=== PATIENT | male | born 1945 | race Caucasian/White ===

== ENCOUNTER 2020-03-06 17:39 | Emergency (ER) | payer MEDICARE, BC ==
[~2020-03-06] VITALS: Ht 190.5 cm; Wt 105.0 kg
[~2020-03-06 17:39] MED LIST: BACL10TA PO; CHOL2000 PO; FISH1CAP15 PO; LEVO50TA78 PO; LISI-642 PO; OMEP40CA13 PO; PRAV40TA3 PO; SERT-153 PO; TESTOSTERONE
[2020-03-06 19:45] VITALS: BP 145/86
[2020-03-07] MEDS ORDERED: DOCU100C40 PO (23:52)
== END 2020-03-06 20:02 | disposition home or self-care (01) ==
LOC: ER 17:40
DX: K59.00 Constipation, unspecified (principal); R19.7 Diarrhea, unspecified; R10.84 Generalized abdominal pain; Z91.018 Allergy to other foods; Z91.09 Other allergy status, other than to drugs and biological substances; Z79.899 Other long term (current) drug therapy
CPT/HCPCS: 99281

== ENCOUNTER 2020-03-07 20:51 | Emergency (ER) | payer MEDICARE, BC ==
[~2020-03-07] VITALS: Ht 185.4 cm; Wt 106.8 kg
[2020-03-07] MEDS ORDERED: DOCU100C40 PO (23:52)
[2020-03-08] MEDS ORDERED: magnesium citrate 296ml oral solution PO ONE (01:00)
[2020-03-08 01:08] VITALS: BP 143/74
== END 2020-03-08 01:09 | disposition home or self-care (01) ==
LOC: ER 20:52
DX: K59.00 Constipation, unspecified (principal); G35 Multiple sclerosis; Z98.890 Other specified postprocedural states; Z91.018 Allergy to other foods; Z79.899 Other long term (current) drug therapy
CPT/HCPCS: 99284

== ENCOUNTER 2025-01-18 12:48 | Emergency (ER) | payer MEDICARE, BC ==
[~2025-01-18] VITALS: Ht 182.9 cm; Wt 98.6 kg
[~2025-01-18 12:48] MED LIST changes: +DOCU100C40 PO; -OMEP40CA13 PO; +OMEP40CA21 PO
--- NOTE | 2025-01-18 13:18 | RADIOLOGY REPORT ---
CLINICAL INDICATION: Finger Pain TECHNIQUE: 3 DI FINGER(S) Comparison: None FINDINGS/IMPRESSION: : Severe diffuse degenerative changes of the hand most prominent at the 1st [facility]. Subtle linear lucency at the distal phalanx of the 5th digit possibly representing a nondisplaced fra cture.
--- NOTE | 2025-01-18 15:22 | Physician Documentation ---
History of Present Illness ~ Chief Complaint: Finger pain Stated Complaint: SMASHED FINGER Time Seen by MD: 13:43 Primary Medical Doctor: ALEXIA; MANJU Source: patient, family HPI Patient is seen today with complaints of having recently smashed his left small finger distal phalanx with the removal of his nail accidentally with soft tissue injury distally to the tuft. Patient states this happened just prior to arrival. Patient is seen today with his . Patient has no other concern or complaint at this time. Tetanus within 5 years: Yes Medication Reconciliation Allergies: Coded Allergies: banana (Unverified Allergy, Intermediate, 03/07/20) diarrhea lactose (Unverified Allergy, Intermediate, 03/07/20) multiple trips to bathroom. Uncoded Allergies: lettuce (Allergy, Intermediate, 01/22/14) diarrhea Scheduled Cholecalciferol (Vitamin D3) (Vitamin D-3), 2,000 UNIT PO DAILY, (Reported) Docusate Sodium (Docusate Sodium), 2 CAP PO Q12H Fish Oil/Dha/Epa (Fish Oil 1,200 Mg Fish Oil), 1 EACH PO BID, (Reported) Levothyroxine Sodium* (Synthroid*), 1 TAB PO DAILY, (Reported) Lisinopril* (Zestril*), 2 TABLET PO DAILY, (Reported) Omeprazole (Prilosec), 1 CAP PO QAM, (Reported) Pravastatin Sodium (Pravastatin Sodium), 1 TAB PO HS, (Reported) Sertraline HCl (Sertraline HCl), 2 TAB PO DAILY, (Reported) [Testosterone], 100 MG DAILY, (Reported) Scheduled PRN Baclofen (Baclofen), 1 TAB PO DAILY PRN for muscle spasms, (Reported) Past Medical History Past Medical History: Multiple Sclerosis Past Surgical History: orthopedic surgeries Lives In: Home Review of Systems Constitutional: Denies: chills, fever, weakness Eyes: Denies: pain, blurred vision ENT: Denies: ear pain, nose pain, throat pain, mouth pain Respiratory: Denies: cough, shortness of breath Cardiovascular: Denies: chest pain, palpitations Gastrointestinal: Denies: abdominal pain, nausea, vomiting Genitourinary: Denies: burning, dysuria Male Genitalia: Denies: penile discharge, testicular pain Neurological: Denies: headache, dizziness Musculoskeletal: Denies: pain, swelling Integumentary: Denies: rash, lesions Allergic/Immunologic: Denies: hives, itching Hematologic/Lymphatic: Denies: no symptoms reported Psychiatric: Denies: depression, anxiety Physical Exam Vital Signs: Temperature: 97.7, Source: Temporal, Heart Rate: 57, Respiratory Rate: 16, BP: 115/61, Pulse Oximetry: 97, Weight: 98.600 Oxygen Flow Rate: 0 Physical Exam General: Awake and Alert, no acute distress. HEENT: Conjunctiva pink, Sclera clear, Mucus Membranes moist. Neck: Supple without masses and tenderness. Resp: Unlabored. Lungs clear to auscultation bilaterally. Heart: Regular Rate and rhythm, normal S1 and S2 without murmur, rub or gallop. Musculoskeletal: Patient on exam does have crush type injury and laceration to the distal tuft of his left small finger and nailbed exposed and nail is not present. Patient is neurovascularly intact distally. Motor function intact distally. Extremities: No cyanosis,clubbing or edema. Skin: Warm and Dry. Procedures Laceration Repair : Procedure Note Procedure note: 2 cc of 1% lidocaine without epinephrine was used to achieve local anesthesia of the laceration to the distal phalanx of the left small finger. Wound was irrigated with copious amounts of normal saline. Laceration is measuring approximately 7 mm with involvement of the nailbed. Three simple sutures with 5-0 Prolene were used to achieve closure. Patient tolerated well. Nonstick dressing with Xeroform and bulky bandage applied to left small finger. Progress Results/Orders Results/Orders Completed Orders - KATERINE HIGHTOWER PAC Lidocaine 1% 30ml Vial (Xylocaine 1% Via (01/18/25 15:20) Vital Signs 01/18/25 12:52 Temp 97.7 Pulse 57 Resp 16 B/P (MAP) 115/61 Pulse Ox 97 O2 Flow Rate 0 EKG/XRAY/CT/US/VASC/MRI Bone/Soft Tissue X-Ray (Ext.) : Additional Comment X-ray interpreted by myself today of the left small finger shows no sign of acute fracture with bones in anatomic alignment with degenerative joint disease throughout digits of hand left hand. DIAGNOSTIC RADIOLOGY Patient: TEETEE ACOSTA Medical Record: [id number] [facility] : 1945, Age: 79 Sex: Male Location: ER Patient Status: REG ER Service Date/Time: 01/18/25/ 1256 Ordering Physician: EITAN GAINES MD Exam: FINGER(S) CLINICAL INDICATION: Finger Pain TECHNIQUE: 3 DI FINGER(S) Comparison: None FINDINGS/IMPRESSION: : Severe diffuse degenerative changes of the hand most prominent at the 1st [facility]. Subtle linear lucency at the distal phalanx of the 5th digit possibly representing a nondisplaced fracture. Electronically Signed by:BELLO MENDEZ MD Date & Time: 01/18/25 1316 Dictated by: BELLO MENDEZ MD Dictation date and time: 01/18/25 1300 Primary Care Provider: NO PRIMARY CARE PROVIDER cc: EITAN GAINES MD ~ Medical Decision Making Findings Patient is seen today with complaints of having recently smashed his left small finger distal phalanx with the removal of his nail accidentally with soft tissue injury distally to the tuft. Patient states this happened just prior to arrival. Patient is seen today with his . Patient has no other concern or complaint at this time. Laceration of left small finger was repaired today by myself using two simple sutures which will need to be removed in seven days. Patient will perform daily dressing changes with nonstick dressing and Xeroform. Patient will keep wound clean and dry for five days after which he may wash with clean soap and water. Return to ED with any worsening, concerning or changing symptoms. Departure Disposition: 01 HOME / SELF CARE / HOMELESS Impression: Primary Impression: Laceration of finger with damage to nail Qualified Codes: S61.317A - Laceration without foreign body of left little finger with damage to nail, initial encounter Condition: Improved Discharge Instructions: Laceration Care, Adult, [id number] Additional Instructions: Laceration of left small finger was repaired today by myself using two simple sutures which will need to be removed in seven days. Patient will perform daily dressing changes with nonstick dressing and Xeroform. Patient will keep wound clean and dry for five days after which he may wash with clean soap and water. Return to ED with any worsening, concerning or changing symptoms. Referrals: NO PRIMARY CARE PROVIDER (PCP) Signature Scribe Signature: No scribe Attestation: No scribe KATERINE HIGHTOWER PAC January 18, 2025 15:22
[2025-01-18] MEDS: LIDOcaine 1% 30ml preserv. free vial IJ STA (15:43)
[2025-01-18 17:10] VITALS: BP 115/61; PULSE 57; RESP 16; TEMP 97.7; O2SAT 98
== END 2025-01-18 17:12 | disposition home or self-care (01) ==
LOC: ER 12:49
DX: S61.317A Laceration without foreign body of left little finger with damage to nail, initial encounter (principal); G35 Multiple sclerosis; Z88.8 Allergy status to other drugs, medicaments and biological substances; Z98.890 Other specified postprocedural states; X58.XXXA Exposure to other specified factors, initial encounter; Y93.89 Activity, other specified; Y92.89 Other specified places as the place of occurrence of the external cause; Y99.8 Other external cause status
CPT/HCPCS: 12001; 73140; 99283; A6222; Z7610